=== PATIENT | female | born 1965 | race Caucasian/White ===

== ENCOUNTER 2019-11-26 07:27 | Outpatient (CLI) | payer BC, SELFPAY ==
--- NOTE | 2019-11-26 07:54 | ECG_ITS ---
Measurements Intervals [place] Rate: 74 P: 49 [place]: 168 QRS: 46 QRSD: 143 T: 38 QT: 417 QTc: 465 Interpretive Statements SINUS RHYTHM RIGHT BUNDLE BRANCH BLOCK ABNORMAL ECG Electronically Signed On 11-26-2019 8:07:00 [employer] by Jadiel Paez D.O.
== END 2019-11-26 07:28 | disposition home or self-care (01) ==
PROVIDERS: PCP Internal Medicine; Visit Provider Podiatrist Foot & Ankle Surgery
DX: R94.31 Abnormal electrocardiogram [ECG] [EKG] (principal); R03.0 Elevated blood-pressure reading, without diagnosis of hypertension
CPT/HCPCS: 93005